=== PATIENT | male | born 1945 | race Caucasian/White ===

== ENCOUNTER 2018-03-30 09:01 | Outpatient (CLI) | payer MEDICARE ==
[~2018-03-30 09:01] MED LIST: LEVOTHYROXINE 200 MCG PO; SIMV20TA5 PO; TESTOSTERONE IM
[2018-03-30 10:05] LABS: BASOPHILS % (AUTO) 0.8 % (0-1); EOSINOPHILS # (AUTO) 0.2 X10'3 (0-0.9); EOSINOPHILS % (AUTO) 4.2 % (0-6); HEMATOCRIT 42.3 % (42.0-52.0); HEMOGLOBIN 14.5 g/dl (14.0-17.9); LYMPHOCYTES # (AUTO) 1.4 X10'3 (1.1-4.8); LYMPHOCYTES % (AUTO) 28.6 % (21-51); MEAN CORPUSCULAR HEMOGLOBIN 30.1 PG (27.0-31.0); MEAN CORPUSCULAR HGB CONC 34.3 % (33.0-36.5); MEAN CORPUSCULAR VOLUME 87.8 FL (78-98); MEAN PLATELET VOLUME 9.2 FL (7.4-10.4); MONOCYTES # (AUTO) 0.4 X10'3 (0-0.9); MONOCYTES % (AUTO) 8.3 % (2-12); NEUTROPHILS # (AUTO) 2.9 X10'3 (1.8-7.7); NEUTROPHILS % (AUTO) 58.1 % (42-75); PLATELET COUNT 195 X10'3 (140-440); RED BLOOD COUNT 4.82 X10'6 (4.70-6.10); RED CELL DISTRIBUTION WIDTH 13.6 % (11.5-14.5); WHITE BLOOD COUNT 4.9 X10'3 (4.5-11.0)
[2018-03-30 10:16] LABS: CLARITY,URINE CLEAR (Clear); COLOR,URINE YELLOW (Yellow); GLUCOSE, URINE NEGATIVE (Neg); KETONES,URINE NEGATIVE (Neg); LEUKOCYTE ESTERASE ,URINE NEGATIVE (Neg); NITRITES, URINE NEGATIVE (Neg); OCCULT BLOOD,URINE TRACE-LYSED (Neg); PH,URINE 5.5 (4.8-8.0); PROTEIN,URINE NEGATIVE (Neg); UROBILINOGEN,URINE 0.2 E.U/dL (0.2-1.0)
[2018-03-30 10:24] LABS: UA COLLECTION TYPE VOIDED
[2018-03-30 10:25] LABS: BACTERIA,URINE NONE SEEN /HPF (Neg); RBC,URINE 0-2 /HPF (0-2); SQUAMOUS EPITHELIAL CELL,UR MODERATE /LPF (FEW); WBC,URINE 0-4 /HPF (0-4)
[2018-03-30 10:30] LABS: ALANINE AMINOTRANSFERASE 30 U/L (12-78); ALBUMIN 3.8 G/DL (3.4-5.0); ALBUMIN/GLOBULIN RATIO 1.1 (1.1-1.5); ALKALINE PHOSPHATASE 58 IU/L (46-116); ANION GAP 6 (8-16); ASPARTATE AMINO TRANSFERASE 21 U/L (10-37); BILIRUBIN,TOTAL 0.6 MG/DL (0.1-1.0); BLOOD UREA NITROGEN 16 MG/DL (7-18); CHLORIDE 105 MMOL/L (99-107); CREATININE 0.84 MG/DL (0.60-1.10); GLUCOSE 98 MG/DL (70-104); SODIUM 138 MMOL/L (135-145); TOTAL CARBON DIOXIDE 26.6 MMOL/L (24-32); TOTAL PROTEIN 7.3 G/DL (6.4-8.2); eGFR 90 ML/MIN
== END 2018-03-30 23:59 | disposition home or self-care (01) ==
LOC: LAB 09:01
PROVIDERS: ATTEND Specialist
DX: Z01.818 Encounter for other preprocedural examination (principal); Z51.81 Encounter for therapeutic drug level monitoring; N39.0 Urinary tract infection, site not specified; E03.9 Hypothyroidism, unspecified
CPT/HCPCS: 36415; 80053; 81001; 84443; 85025; 85610; 87070

== ENCOUNTER 2018-04-13 05:28 | Inpatient (IN) | payer MEDICARE ==
[~2018-04-13] VITALS: Ht 177.8 cm; Wt 140.5 kg
[2018-04-13] VITALS (19 sets, daily range): BP systolic 105–155; BP diastolic 51–88
[~2018-04-13 05:28] MED LIST changes: +LEVO75TA PO; -LEVOTHYROXINE 200 MCG PO; -TESTOSTERONE IM; +ringers solution, lacted 1,000 ML IV SCH
[2018-04-13] MEDS ORDERED: gabapentin 300mg capsule PO ONE (05:30)
[2018-04-13] MEDS ORDERED: ceFAZolin inj. 3,000 MG in normal saline 100ml IV soln 100 ML IV ONE (05:30)
[2018-04-13] MEDS ORDERED: oxyCODONE SR 10mg (sust. release) tab PO ONE (05:30)
[2018-04-13] MEDS ORDERED: famotidine 20mg tablet PO ONE (05:30)
[2018-04-13] MEDS ORDERED: acetaminophen 325mg tablet PO ONE (05:30)
[2018-04-13] MEDS ORDERED: tranexamic acid inj. 1,500 MG in normal saline 100ml IV soln 85 ML IV ONE (06:00)
[2018-04-13] MEDS ORDERED: LIDOcaine 1% (10mg/ml) 2ml vial ONE (06:14)
[2018-04-13] MEDS ORDERED: ROPIVAcaine 0.5% (5mg/ml) 30ml vial ONE (06:40)
[2018-04-13] MEDS ORDERED: bacitracin inj 150,000 UNIT in sodium chloride irrig. sol 3,000 ML IR ONE (07:00)
[2018-04-13] MEDS ORDERED: sevoflurane 250ml liquid IH ONE (07:15)
[2018-04-13] MEDS ORDERED: fentaNYL /PF 50mcg/ml 5ml ampule ONE (07:17)
[2018-04-13] MEDS ORDERED: midazolam 2 mg/2 ml injection ONE (07:17)
[2018-04-13] MEDS ORDERED: rocuronium 10mg/ml inj IV ONE (07:17)
[2018-04-13] MEDS ORDERED: propofol inj 20 ML IV ONE (07:17)
[2018-04-13] MEDS ORDERED: dexamethasone sod phosphate 4mg/ml inj. ONE (08:00)
[2018-04-13] MEDS ORDERED: ondansetron/PF 4mg/2ml inj ONE (08:00)
[2018-04-13] MEDS ORDERED: ringers solution, lacted 1,000 ML IV SCH (08:08)
[2018-04-13] MEDS ORDERED: morphine 4 MG/ML inj SYRINge IV PRN ×2 (08:10)
[2018-04-13] MEDS ORDERED: hydrALAZINE 20mg/ml inj. IV PRN (08:10)
[2018-04-13] MEDS ORDERED: ketorolac trometh. 30mg/ml inj. IV ONE (08:10)
[2018-04-13] MEDS ORDERED: ondansetron/PF 4mg/2ml inj IV PRN ×2 (08:10→09:45)
[2018-04-13] MEDS ORDERED: labetalol 20mg/4ml (5mg/ml) syringe IV PRN (08:10)
[2018-04-13] MEDS ORDERED: acetaminophen 1,000mg/100ml IV 100 ML IV PRN (08:10)
[2018-04-13] MEDS ORDERED: proCHLORperazine 10 MG/2 ml inj IV PRN (08:10)
[2018-04-13] MEDS ORDERED: meperidine/PF 25mg/ml syringe IV PRN ×2 (08:10)
[2018-04-13] MEDS ORDERED: morphine 10mg/ml inj. ONE (08:44)
[2018-04-13] MEDS ORDERED: glycopyrrolate 0.2mg/ml inj ONE (09:27)
[2018-04-13] MEDS ORDERED: neostigmine methylsulfate 1 MG/ML 10ml vial ONE (09:27)
[2018-04-13] MEDS ORDERED: oxyCODONE/APAP 10/325mg tablet PO PRN (09:45)
[2018-04-13] MEDS ORDERED: HYDROmorphone inj. 0.5 MG/0.5 ML DISP.SYRIN IV PRN (09:45)
[2018-04-13] MEDS ORDERED: bisacodyl 10mg suppository rectal RC PRN (09:45)
[2018-04-13] MEDS ORDERED: magnesium hydroxide 30ml (MOM) UD suspension PO PRN (09:45)
[2018-04-13] MEDS ORDERED: diphenhydrAMINE 25mg capsule PO PRN ×2 (09:45)
[2018-04-13] MEDS ORDERED: acetaminophen 325mg tablet PO PRN (09:45)
[2018-04-13] MEDS: meperidine/PF 25mg/ml syringe IV PRN ×2 (09:59→10:15)
[2018-04-13] MEDS: potassium cl 20mEq in 1/2 NS 1,000 ML IV SCH ×3 (13:02→21:30)
[2018-04-13] MEDS: gabapentin 300mg capsule PO SCH ×2 (13:02→21:01)
[2018-04-13] MEDS: ceFAZolin 1GM/D5W- ADD-VANTAGE 50 ML IV SCH ×2 (17:01→23:34)
[2018-04-13] MEDS: sennosides 8.6mg tablet PO SCH (21:01)
[2018-04-13] MEDS: atorvastatin 10mg tablet PO SCH (21:01)
[2018-04-13] MEDS: ascorbic acid 500mg tablet PO SCH (21:02)
[2018-04-14 02:00] VITALS: BP 140/60
[2018-04-14] MEDS: oxyCODONE/APAP 10/325mg tablet PO PRN (04:59)
[2018-04-14] MEDS: potassium cl 20mEq in 1/2 NS 1,000 ML IV SCH ×2 (04:59→16:23)
[2018-04-14 06:00] VITALS: BP 132/58
[2018-04-14 06:23] LABS: BASOPHILS % (AUTO) 0.2 % (0-1); EOSINOPHILS # (AUTO) 0.1 X10'3 (0-0.9); EOSINOPHILS % (AUTO) 0.8 % (0-6); HEMOGLOBIN 11.8 g/dl (14.0-17.9); LYMPHOCYTES # (AUTO) 1.3 X10'3 (1.1-4.8); MEAN CORPUSCULAR HEMOGLOBIN 30.2 PG (27.0-31.0); MEAN CORPUSCULAR HGB CONC 34.8 % (33.0-36.5); MEAN CORPUSCULAR VOLUME 86.8 FL (78-98); MEAN PLATELET VOLUME 8.8 FL (7.4-10.4); MONOCYTES # (AUTO) 0.9 X10'3 (0-0.9); MONOCYTES % (AUTO) 10.1 % (2-12); NEUTROPHILS # (AUTO) 6.3 X10'3 (1.8-7.7); NEUTROPHILS % (AUTO) 73.9 % (42-75); PLATELET COUNT 185 X10'3 (140-440); RED BLOOD COUNT 3.91 X10'6 (4.70-6.10); RED CELL DISTRIBUTION WIDTH 13.6 % (11.5-14.5); WHITE BLOOD COUNT 8.5 X10'3 (4.5-11.0)
[2018-04-14 06:43] LABS: INR 1.1 INR; PROTHROMBIN TIME 10.9 SECONDS (9.0-12.0)
[2018-04-14 06:45] LABS: ANION GAP 9 (8-16); CHLORIDE 105 MMOL/L (99-107); SODIUM 139 MMOL/L (135-145); TOTAL CARBON DIOXIDE 25.5 MMOL/L (24-32)
[2018-04-14] MEDS: levoTHYROXINE 175mcg tablet PO SCH (08:21)
[2018-04-14] MEDS: multivitamins, therapeutics tablet PO SCH (08:21)
[2018-04-14] MEDS: gabapentin 300mg capsule PO SCH ×3 (08:21→20:26)
[2018-04-14] MEDS: ascorbic acid 500mg tablet PO SCH ×2 (08:21→20:27)
[2018-04-14 10:00] VITALS: BP 132/63
[2018-04-14] MEDS ORDERED: warfarin 10mg tablet PO ONE (10:00)
[2018-04-14 18:00] VITALS: BP 147/64
[2018-04-14] MEDS: atorvastatin 10mg tablet PO SCH (20:27)
[2018-04-14] MEDS: sennosides 8.6mg tablet PO SCH (20:27)
[2018-04-14] MEDS: celeCOXIB 100mg capsule PO SCH (20:27)
[2018-04-14 22:00] VITALS: BP 119/54
[2018-04-15] MEDS: potassium cl 20mEq in 1/2 NS 1,000 ML IV SCH (01:44)
[2018-04-15 04:57] LABS: INR 1.1 INR; PROTHROMBIN TIME 11.4 SECONDS (9.0-12.0)
[2018-04-15 05:00] VITALS: BP 147/65
[2018-04-15 05:01] LABS: BASOPHILS % (AUTO) 0.3 % (0-1); EOSINOPHILS # (AUTO) 0.1 X10'3 (0-0.9); EOSINOPHILS % (AUTO) 1.1 % (0-6); HEMATOCRIT 33.6 % (42.0-52.0); HEMOGLOBIN 11.4 g/dl (14.0-17.9); LYMPHOCYTES # (AUTO) 1.1 X10'3 (1.1-4.8); LYMPHOCYTES % (AUTO) 14.6 % (21-51); MEAN CORPUSCULAR HEMOGLOBIN 29.5 PG (27.0-31.0); MEAN CORPUSCULAR HGB CONC 33.8 % (33.0-36.5); MEAN CORPUSCULAR VOLUME 87.3 FL (78-98); MEAN PLATELET VOLUME 8.7 FL (7.4-10.4); MONOCYTES # (AUTO) 0.9 X10'3 (0-0.9); NEUTROPHILS # (AUTO) 5.7 X10'3 (1.8-7.7); PLATELET COUNT 162 X10'3 (140-440); RED BLOOD COUNT 3.85 X10'6 (4.70-6.10); RED CELL DISTRIBUTION WIDTH 13.9 % (11.5-14.5); WHITE BLOOD COUNT 7.9 X10'3 (4.5-11.0)
[2018-04-15] MEDS: oxyCODONE/APAP 10/325mg tablet PO PRN (05:39)
[2018-04-15] MEDS: gabapentin 300mg capsule PO SCH ×3 (08:22→20:26)
[2018-04-15] MEDS: celeCOXIB 100mg capsule PO SCH ×2 (08:22→20:26)
[2018-04-15] MEDS: levoTHYROXINE 175mcg tablet PO SCH (08:22)
[2018-04-15] MEDS: ascorbic acid 500mg tablet PO SCH ×2 (08:23→20:26)
[2018-04-15] MEDS: multivitamins, therapeutics tablet PO SCH (08:23)
[2018-04-15] MEDS ORDERED: acetaminophen 325mg tablet PO PRN (09:45)
[2018-04-15 10:00] VITALS: BP 117/61
[2018-04-15] MEDS ORDERED: warfarin 10mg tablet PO ONE (10:00)
[2018-04-15] MEDS ORDERED: HYDROmorphone 1 mg/ml syringe IV PRN (17:43)
[2018-04-15 18:00] VITALS: BP 123/67
[2018-04-15] MEDS: sennosides 8.6mg tablet PO SCH (20:26)
[2018-04-15] MEDS: atorvastatin 10mg tablet PO SCH (20:26)
[2018-04-15 22:00] VITALS: BP 120/49
[2018-04-16 05:00] VITALS: BP 145/60
[2018-04-16 05:38] LABS: BASOPHILS % (AUTO) 0.5 % (0-1); EOSINOPHILS # (AUTO) 0.3 X10'3 (0-0.9); EOSINOPHILS % (AUTO) 3.4 % (0-6); HEMATOCRIT 34.7 % (42.0-52.0); HEMOGLOBIN 11.9 g/dl (14.0-17.9); LYMPHOCYTES # (AUTO) 1.4 X10'3 (1.1-4.8); LYMPHOCYTES % (AUTO) 17.1 % (21-51); MEAN CORPUSCULAR HEMOGLOBIN 30.2 PG (27.0-31.0); MEAN CORPUSCULAR HGB CONC 34.4 % (33.0-36.5); MEAN CORPUSCULAR VOLUME 87.9 FL (78-98); MEAN PLATELET VOLUME 8.8 FL (7.4-10.4); MONOCYTES # (AUTO) 0.8 X10'3 (0-0.9); MONOCYTES % (AUTO) 10.3 % (2-12); NEUTROPHILS # (AUTO) 5.6 X10'3 (1.8-7.7); NEUTROPHILS % (AUTO) 68.7 % (42-75); PLATELET COUNT 179 X10'3 (140-440); RED BLOOD COUNT 3.95 X10'6 (4.70-6.10); RED CELL DISTRIBUTION WIDTH 13.6 % (11.5-14.5); WHITE BLOOD COUNT 8.2 X10'3 (4.5-11.0)
[2018-04-16 05:55] LABS: INR 1.2 INR; PROTHROMBIN TIME 12.6 SECONDS (9.0-12.0)
[2018-04-16] MEDS ORDERED: ASPI-1264 PO (08:19)
[2018-04-16] MEDS: gabapentin 300mg capsule PO SCH (09:45)
[2018-04-16] MEDS: celeCOXIB 100mg capsule PO SCH (09:45)
[2018-04-16] MEDS: multivitamins, therapeutics tablet PO SCH (09:46)
[2018-04-16] MEDS: levoTHYROXINE 175mcg tablet PO SCH (09:46)
[2018-04-16] MEDS: ascorbic acid 500mg tablet PO SCH (09:46)
[2018-04-16] MEDS ORDERED: warfarin 10mg tablet PO ONE (10:00)
== END 2018-04-16 10:20 | disposition home health service (06) | DRG 470 ==
LOC: PAS IN 05:28 → EDSTATUS 07:30 → ORTHO 4S 11:00
PROVIDERS: ADMIT Specialist; ATTEND Specialist
PROC: 5A09357 Assistance with Respiratory Ventilation, Less than 24 Consecutive Hours, Continuous Positive Airway Pressure (ICD-10-PCS; 2018-04-13)
PROC: 0SR902Z Replacement of Right Hip Joint with Metal on Polyethylene Synthetic Substitute, Open Approach (ICD-10-PCS; principal; 2018-04-13 07:16)
DX: M16.11 Unilateral primary osteoarthritis, right hip (principal); D62 Acute posthemorrhagic anemia; Z68.41 Body mass index [BMI] 40.0-44.9, adult; E03.9 Hypothyroidism, unspecified; E66.01 Morbid (severe) obesity due to excess calories; Z96.642 Presence of left artificial hip joint; E78.5 Hyperlipidemia, unspecified; G47.30 Sleep apnea, unspecified; Z79.899 Other long term (current) drug therapy; Z79.82 Long term (current) use of aspirin; Z85.46 Personal history of malignant neoplasm of prostate
CPT/HCPCS: 36415; 73502; 80051; 85025; 85610; 86885; 86900; 86901; 97110; 97116; 97162; 97530; A6253; A6449; A6455; A7000; C1776; J0131; J0690; J1100; J1885; J2175; J2250; J2270; J2405; J2704; J2710; J2795; J3010; J3490; J7030; J7120

== ENCOUNTER 2018-08-03 10:54 | Inpatient (IN) | payer MEDICARE ==
[~2018-08-03] VITALS: Ht 177.8 cm; Wt 144.8 kg
[2018-08-03] VITALS (17 sets, daily range): BP systolic 115–154; BP diastolic 46–82
[~2018-08-03 10:54] MED LIST changes: +AMLO2.5T2 PO; +acetaminophen 325mg tablet PO ONE; +ceFAZolin inj. 3,000 MG in normal saline 100ml IV soln 100 ML IV ONE; +celeCOXIB 100mg capsule PO ONE; +famotidine 20mg tablet PO ONE; +gabapentin 300mg capsule PO ONE; +oxyCODONE SR 10mg (sust. release) tab PO ONE; +tranexamic acid inj. 1,000 MG in normal saline 100ml IV soln 90 ML IV ONE
[2018-08-03] MEDS ORDERED: ringers solution, lacted 1,000 ML IV SCH (11:13)
[2018-08-03] MEDS ORDERED: meperidine/PF 25mg/ml syringe IV PRN ×3 (11:15)
[2018-08-03] MEDS ORDERED: proCHLORperazine 10 MG/2 ml inj IV PRN (11:15)
[2018-08-03] MEDS ORDERED: morphine 4 MG/ML inj SYRINge IV PRN ×2 (11:15)
[2018-08-03] MEDS ORDERED: ondansetron/PF 4mg/2ml inj IV PRN ×2 (11:15→15:30)
[2018-08-03] MEDS ORDERED: bacitracin inj 150,000 UNIT in sodium chloride irrig. sol 3,000 ML IR ONE (12:00)
[2018-08-03] MEDS ORDERED: tranexamic acid inj. 1,500 MG in normal saline 100ml IV soln 85 ML IV ONE (12:30)
[2018-08-03] MEDS ORDERED: sevoflurane 250ml liquid IH ONE (12:47)
[2018-08-03] MEDS ORDERED: LIDOcaine 2% (20mg/ml) 5ml vial ONE (12:47)
[2018-08-03] MEDS ORDERED: ROPIVAcaine 0.5% (5mg/ml) 30ml vial ONE ×2 (12:49→13:20)
[2018-08-03] MEDS ORDERED: MIDAZolam 1mg/ml 10ml vial ONE (12:54)
[2018-08-03] MEDS ORDERED: fentaNYL/PF 50MCG/1 ML 2ML syringe ONE (12:54)
[2018-08-03] MEDS ORDERED: rocuronium 10mg/ml inj IV ONE (13:36)
[2018-08-03] MEDS ORDERED: propofol inj 20 ML IV ONE (13:37)
[2018-08-03] MEDS ORDERED: fentaNYL /PF 50mcg/ml 5ml ampule ONE (13:38)
[2018-08-03] MEDS ORDERED: dexamethasone sod phosphate 4mg/ml inj. ONE (13:39)
[2018-08-03] MEDS ORDERED: ondansetron/PF 4mg/2ml inj ONE (13:52)
[2018-08-03] MEDS ORDERED: acetaminophen 325mg tablet PO PRN (15:30)
[2018-08-03] MEDS ORDERED: magnesium hydroxide 30ml (MOM) UD suspension PO PRN (15:30)
[2018-08-03] MEDS ORDERED: HYDROmorphone 1 mg/ml syringe IV PRN (15:30)
[2018-08-03] MEDS ORDERED: bisacodyl 10mg suppository rectal RC PRN (15:30)
[2018-08-03] MEDS ORDERED: diphenhydrAMINE 25mg capsule PO PRN ×2 (15:30)
[2018-08-03] MEDS ORDERED: oxyCODONE/APAP 10/325mg tablet PO PRN (15:30)
[2018-08-03] MEDS ORDERED: ketorolac trometh. 30mg/ml inj. ONE (15:49)
[2018-08-03] MEDS ORDERED: ceFAZolin 1GM/D5W- ADD-VANTAGE 50 ML IV SCH (16:00)
[2018-08-03] MEDS: ascorbic acid 500mg tablet PO SCH (19:19)
[2018-08-03] MEDS: oxyCODONE/APAP 10/325mg tablet PO PRN ×2 (19:20→23:20)
[2018-08-03] MEDS: potassium cl 20mEq in 1/2 NS 1,000 ML IV SCH (20:43)
[2018-08-03] MEDS: gabapentin 300mg capsule PO SCH (20:43)
[2018-08-03] MEDS: sennosides 8.6mg tablet PO SCH (20:43)
[2018-08-03] MEDS: atorvastatin 10mg tablet PO SCH (20:43)
[2018-08-03] MEDS ORDERED: SIMVASTATIN PO SCH (21:00)
[2018-08-03] MEDS: ceFAZolin 1GM/D5W- ADD-VANTAGE 50 ML IV SCH (23:21)
[2018-08-04 02:00] VITALS: BP 114/40
[2018-08-04] MEDS: potassium cl 20mEq in 1/2 NS 1,000 ML IV SCH ×3 (05:02→23:21)
[2018-08-04] MEDS: oxyCODONE/APAP 10/325mg tablet PO PRN ×4 (05:03→20:22)
[2018-08-04 06:28] VITALS: BP 113/48
[2018-08-04 06:36] LABS: BASOPHILS % (AUTO) 0 % (0-1); EOSINOPHILS % (AUTO) 0 % (0-6); HEMATOCRIT 39.1 % (42.0-52.0); HEMOGLOBIN 12.9 g/dl (14.0-17.9); LYMPHOCYTES # (AUTO) 0.6 X10'3 (1.1-4.8); LYMPHOCYTES % (AUTO) 6.5 % (21-51); MEAN CORPUSCULAR HEMOGLOBIN 28.6 PG (27.0-31.0); MEAN CORPUSCULAR HGB CONC 33.1 % (33.0-36.5); MEAN CORPUSCULAR VOLUME 86.5 FL (78-98); MEAN PLATELET VOLUME 9.8 FL (7.4-10.4); MONOCYTES # (AUTO) 0.5 X10'3 (0-0.9); MONOCYTES % (AUTO) 4.8 % (2-12); NEUTROPHILS # (AUTO) 8.7 X10'3 (1.8-7.7); NEUTROPHILS % (AUTO) 88.7 % (42-75); PLATELET COUNT 191 X10'3 (140-440); RED BLOOD COUNT 4.52 X10'6 (4.70-6.10); WHITE BLOOD COUNT 9.8 X10'3 (4.5-11.0)
[2018-08-04 06:43] LABS: ANION GAP 8 (8-16); CHLORIDE 103 MMOL/L (99-107); POTASSIUM 4.4 MMOL/L (3.5-5.1); SODIUM 137 MMOL/L (135-145); TOTAL CARBON DIOXIDE 25.6 MMOL/L (24-32)
[2018-08-04 06:56] LABS: INR 1.3 INR; PROTHROMBIN TIME 12.9 SECONDS (9.0-12.0)
[2018-08-04] MEDS: multivitamins, therapeutics tablet PO SCH (07:15)
[2018-08-04] MEDS: ceFAZolin 1GM/D5W- ADD-VANTAGE 50 ML IV SCH (07:15)
[2018-08-04] MEDS: levoTHYROXINE 175mcg tablet PO SCH (07:15)
[2018-08-04] MEDS: gabapentin 300mg capsule PO SCH ×3 (07:15→20:20)
[2018-08-04] MEDS: ascorbic acid 500mg tablet PO SCH ×2 (07:16→20:20)
[2018-08-04] MEDS: amLODIPine 5mg tablet PO SCH (07:17)
[2018-08-04] MEDS ORDERED: warfarin 5mg tablet PO ONE (10:00)
[2018-08-04 11:56] VITALS: BP 125/55
[2018-08-04 18:00] VITALS: BP 123/53
[2018-08-04] MEDS: atorvastatin 10mg tablet PO SCH (20:20)
[2018-08-04] MEDS: sennosides 8.6mg tablet PO SCH (20:20)
[2018-08-04] MEDS: celeCOXIB 100mg capsule PO SCH (20:20)
[2018-08-04 22:00] VITALS: BP 126/39
[2018-08-05 05:05] LABS: BASOPHILS % (AUTO) 0.3 % (0-1); EOSINOPHILS # (AUTO) 0.1 X10'3 (0-0.9); EOSINOPHILS % (AUTO) 1.7 % (0-6); HEMOGLOBIN 11.6 g/dl (14.0-17.9); LYMPHOCYTES # (AUTO) 1.5 X10'3 (1.1-4.8); LYMPHOCYTES % (AUTO) 19.4 % (21-51); MEAN CORPUSCULAR HGB CONC 33.1 % (33.0-36.5); MEAN CORPUSCULAR VOLUME 87.5 FL (78-98); MEAN PLATELET VOLUME 9.6 FL (7.4-10.4); MONOCYTES # (AUTO) 0.7 X10'3 (0-0.9); MONOCYTES % (AUTO) 9.4 % (2-12); NEUTROPHILS # (AUTO) 5.2 X10'3 (1.8-7.7); NEUTROPHILS % (AUTO) 69.2 % (42-75); PLATELET COUNT 164 X10'3 (140-440); WHITE BLOOD COUNT 7.5 X10'3 (4.5-11.0)
[2018-08-05] MEDS: oxyCODONE/APAP 10/325mg tablet PO PRN ×2 (05:15→09:09)
[2018-08-05 05:36] LABS: INR 1.5 INR; PROTHROMBIN TIME 14.6 SECONDS (9.0-12.0)
[2018-08-05 06:00] VITALS: BP 125/38
[2018-08-05] MEDS: celeCOXIB 100mg capsule PO SCH (07:10)
[2018-08-05] MEDS: multivitamins, therapeutics tablet PO SCH (07:10)
[2018-08-05] MEDS: gabapentin 300mg capsule PO SCH (07:10)
[2018-08-05] MEDS: levoTHYROXINE 175mcg tablet PO SCH (07:10)
[2018-08-05] MEDS: ascorbic acid 500mg tablet PO SCH (07:11)
[2018-08-05] MEDS: amLODIPine 5mg tablet PO SCH (07:13)
[2018-08-05] MEDS: potassium cl 20mEq in 1/2 NS 1,000 ML IV SCH (08:40)
[2018-08-05] MEDS ORDERED: warfarin 5mg tablet PO ONE (10:00)
[2018-08-05] MEDS ORDERED: acetaminophen 325mg tablet PO PRN (15:30)
== END 2018-08-05 09:50 | disposition home or self-care (01) | DRG 470 ==
LOC: PAS IN 10:54 → EDSTATUS 13:45 → ORTHO 4S 17:10
PROVIDERS: ADMIT Specialist; ATTEND Specialist
PROC: 3E0T3BZ Introduction of Anesthetic Agent into Peripheral Nerves and Plexi, Percutaneous Approach (ICD-10-PCS; 2018-08-03)
PROC: 0SRD0J9 Replacement of Left Knee Joint with Synthetic Substitute, Cemented, Open Approach (ICD-10-PCS; principal; 2018-08-03 12:47)
DX: M17.0 Bilateral primary osteoarthritis of knee (principal); Z68.42 Body mass index [BMI] 45.0-49.9, adult; E66.01 Morbid (severe) obesity due to excess calories; G47.30 Sleep apnea, unspecified; Z96.643 Presence of artificial hip joint, bilateral; I10 Essential (primary) hypertension; L40.9 Psoriasis, unspecified; M25.762 Osteophyte, left knee; M21.162 Varus deformity, not elsewhere classified, left knee; Z90.49 Acquired absence of other specified parts of digestive tract; Z79.899 Other long term (current) drug therapy; Z79.890 Hormone replacement therapy; Z85.46 Personal history of malignant neoplasm of prostate; Z87.442 Personal history of urinary calculi
CPT/HCPCS: 36415; 73560; 80051; 85025; 85610; 87070; 97110; 97116; 97162; 97530; A6449; A6455; A7000; C1713; C1776; G0378; J0690; J1100; J1885; J2001; J2250; J2405; J2704; J2795; J3010; J7030; J7120

== ENCOUNTER 2020-02-18 09:50 | Day surgery (SDC) | payer MEDICARE ==
[~2020-02-18] VITALS: Ht 177.8 cm; Wt 145.2 kg
[2020-02-18] VITALS (7 sets, daily range): BP systolic 129–155; BP diastolic 69–84
[~2020-02-18 09:50] MED LIST changes: -AMLO2.5T2 PO; +LISI10TA4 PO; +SIMV-42 PO; -SIMV20TA5 PO; -acetaminophen 325mg tablet PO ONE; -ceFAZolin inj. 3,000 MG in normal saline 100ml IV soln 100 ML IV ONE; +cefazolin/dext.iso 2gm/50ml 50 ML IV ONE; -celeCOXIB 100mg capsule PO ONE; -gabapentin 300mg capsule PO ONE; -oxyCODONE SR 10mg (sust. release) tab PO ONE; -tranexamic acid inj. 1,000 MG in normal saline 100ml IV soln 90 ML IV ONE
[2020-02-18] MEDS ORDERED: ringers solution, lacted 1,000 ML IV SCH (10:37)
[2020-02-18] MEDS ORDERED: morphine 2 MG/ML inj. syringe IV PRN (10:40)
[2020-02-18] MEDS ORDERED: proCHLORperazine 10 MG/2 ml inj IV PRN (10:40)
[2020-02-18] MEDS ORDERED: ondansetron/PF 4mg/2ml inj IV PRN (10:40)
[2020-02-18] MEDS ORDERED: morphine 4 MG/ML inj SYRINge IV PRN (10:40)
[2020-02-18] MEDS ORDERED: meperidine/PF 25mg/ml syringe IV PRN ×3 (10:40)
[2020-02-18] MEDS ORDERED: bacitracin 15gm ointment TP ONE (11:20)
[2020-02-18] MEDS ORDERED: BUPIVAcaine/PF 2.5 mg/ml (0.25%) 30ml vial ONE (11:20)
[2020-02-18] MEDS ORDERED: desflurane 240ml liquid inh. IH ONE (12:00)
[2020-02-18] MEDS ORDERED: ketorolac trometh. 30mg/ml inj. ONE (12:00)
[2020-02-18] MEDS ORDERED: midazolam 2 mg/2 ml injection ONE (12:06)
[2020-02-18] MEDS ORDERED: fentaNYL/PF 50MCG/1 ML 2ML syringe ONE (12:06)
[2020-02-18] MEDS ORDERED: LIDOcaine 2% (20mg/ml) 5ml vial ONE (12:07)
[2020-02-18] MEDS ORDERED: propofol inj 20 ML IV ONE (12:07)
[2020-02-18] MEDS ORDERED: dexamethasone sod phosphate 4mg/ml inj. ONE (12:45)
[2020-02-18] MEDS ORDERED: ondansetron/PF 4mg/2ml inj ONE (12:46)
--- NOTE | 2020-02-18 13:40 | NUR ---
Received from OR via BED, accompanied by Anesthesiologist DR ATKINSON-- and report given by Anesthesiolgist. PATIENT A&OX4, DENIES PAIN, V/S WNL, NEUROVASCULAR CHECKS INTACT, 20G PIV RUE, SCD ON, DRESSING TO RIGHT FOOT CDI WITH CAM BOOT ON.
--- NOTE | 2020-02-18 14:30 | NUR ---
PATIENT A&OX4, DENIES PAIN, V/S WNL, NEUROVASCULAR CHECKS INTACT, 20G PIV RUE D/C, SCD OFF, DRESSING TO RIGHT FOOT CDI WITH CAM BOOT ON. I HAVE REVIEWED D/C INSTRUCTIONS WITH PATIENT AND HE HAS VERBALIZED UNDERSTANDING. PATIENT D/C HOME WITH ALL BELONGINGS AND HIS GAVE TRANSPORT HOME.
== END 2020-02-18 14:30 | disposition home or self-care (01) ==
LOC: PAS 09:50
PROVIDERS: ATTEND Podiatrist Foot & Ankle Surgery
DX: M20.21 Hallux rigidus, right foot (principal); M79.671 Pain in right foot; E03.9 Hypothyroidism, unspecified; M19.90 Unspecified osteoarthritis, unspecified site; G47.30 Sleep apnea, unspecified; I10 Essential (primary) hypertension; Z87.442 Personal history of urinary calculi; Z79.899 Other long term (current) drug therapy; Z11.59 Encounter for screening for other viral diseases
CPT/HCPCS: 28750; 36415; 73620; 76000; 82948; A6223; C1713; J1100; J1885; J2001; J2250; J2405; J2704; J3010; J3490; J7120; U0003; A4618; A6449; A7000